=== PATIENT | female | born 1960 | race Caucasian/White ===

== ENCOUNTER 2019-06-28 05:08 | Emergency (ER) | payer OTHER ==
[~2019-06-28] VITALS: Ht 170.2 cm; Wt 44.9 kg
[2019-06-28 05:14] VITALS: Ht 170.2 cm; Wt 44.9 kg
[2019-06-28 06:01] LABS: BASOPHIL % 0.6 % (0-2); PLATELET COUNT 365 x10^3mcL (130-400); RED CELL DISTRIBUTION WIDTH 13.6 % (11.5-14.5)
[2019-06-28 06:07] LABS: CALCIUM 9.3 mg/dL (8.5-10.1); CARBON DIOXIDE 30.2 mmol/L (21-32); CHLORIDE SERUM 102 mmol/L (98-107); CREATININE SERUM 0.8 mg/dL (0.6-1.0); GFR1 > 60 mL/min; GLUCOSE SERUM 89 mg/dL (74-106); POTASSIUM SERUM 4.4 mmol/L (3.5-5.1); SODIUM SERUM 141 mmol/L (136-145)
[2019-06-28 06:12] LABS: ALBUMIN 4.2 g/dL (3.4-5.0); ALKALINE PHOSPHATASE 74 U/L (46-116); ALT/SGPT 21 U/L (14-59); AST/SGOT 22 U/L (15-37); BILIRUBIN TOTAL 0.3 mg/dL (0.20-1.00)
[2019-06-28 06:14] LABS: TOTAL PROTEIN, SERUM 8.3 g/dL (6.4-8.2)
[2019-06-28 10:30] VITALS: BP 121/71
== END 2019-06-28 10:30 | disposition home or self-care (01) ==
LOC: ED 05:08
PROVIDERS: Emergency Medicine
DX: N93.9 Abnormal uterine and vaginal bleeding, unspecified (principal); R63.0 Anorexia; J45.909 Unspecified asthma, uncomplicated; G89.29 Other chronic pain; M54.9 Dorsalgia, unspecified; M79.7 Fibromyalgia; Z88.0 Allergy status to penicillin
CPT/HCPCS: J2405; J7030

== ENCOUNTER 2019-07-15 07:29 | Day surgery (SDC) | payer OTHER ==
[~2019-07-15] VITALS: Ht 170.2 cm; Wt 40.8 kg
[2019-07-15 07:59] VITALS: BP 129/78
[2019-07-15 12:13] VITALS: BP 103/72
== END 2019-07-15 10:40 | disposition home or self-care (01) ==
LOC: GI 07:29 → OR 10:00 → GI 10:40
DX: K22.5 Diverticulum of esophagus, acquired (principal); K29.50 Unspecified chronic gastritis without bleeding; E46 Unspecified protein-calorie malnutrition; K22.70 Barrett's esophagus without dysplasia; J45.909 Unspecified asthma, uncomplicated; E03.9 Hypothyroidism, unspecified; F41.9 Anxiety disorder, unspecified; F32.9 Major depressive disorder, single episode, unspecified; Z88.8 Allergy status to other drugs, medicaments and biological substances; Z88.0 Allergy status to penicillin; Z91.041 Radiographic dye allergy status; Z79.899 Other long term (current) drug therapy; Z87.891 Personal history of nicotine dependence; Z98.890 Other specified postprocedural states; Z79.82 Long term (current) use of aspirin
CPT/HCPCS: 43235; J1200; J1610; J2250; J2310; J3010; J3490

== ENCOUNTER 2019-08-05 19:38 | Inpatient (IN) | payer OTHER, MEDICAID ==
[~2019-08-05] VITALS: Ht 170.2 cm; Wt 38.0 kg
[2019-08-05 19:48] VITALS: Ht 170.2 cm; Wt 38.0 kg
[2019-08-05 20:06] LABS: BASOPHIL % 0.1 % (0-2); PLATELET COUNT 346 x10^3mcL (130-400)
[2019-08-05 20:26] LABS: ALKALINE PHOSPHATASE 64 U/L (46-116); ALT/SGPT 23 U/L (14-59); AST/SGOT 26 U/L (15-37); BILIRUBIN TOTAL 0.6 mg/dL (0.20-1.00); CALCIUM 9.6 mg/dL (8.5-10.1); CARBON DIOXIDE 32.5 mmol/L (21-32); CHLORIDE SERUM 90 mmol/L (98-107); CREATININE SERUM 0.6 mg/dL (0.6-1.0); GFR1 > 60 mL/min; GLUCOSE SERUM 102 mg/dL (74-106); SODIUM SERUM 132 mmol/L (136-145); TOTAL PROTEIN, SERUM 7.9 g/dL (6.4-8.2)
[2019-08-05 20:29] LABS: POTASSIUM SERUM 2.9 mmol/L (3.5-5.1)
[2019-08-05] MEDS ORDERED: CLONAZEPAM2 MG PO (21:09)
[2019-08-05] MEDS ORDERED: COMPRO25 MG RC (21:10)
[2019-08-05] MEDS ORDERED: APAP/HYDROCODON1 T13 PO (21:10)
[2019-08-05] MEDS ORDERED: D3-50001 TAB PO (21:11)
[2019-08-05] MEDS ORDERED: ONDANSETRON4 M3 PO (21:11)
[2019-08-05] MEDS ORDERED: FLONS (21:12)
[2019-08-05] MEDS ORDERED: NATURE'S BLEND F1 MG PO (21:12)
[2019-08-05] MEDS ORDERED: CARISOPRODOL350 MG PO (21:12)
[2019-08-05 21:50] LABS: CHOLESTEROL/HDL RATIO 2.6; PHOSPHOROUS 2.7 mg/dL (2.5-4.9)
[2019-08-05 21:58] LABS: T3 TOTAL 0.81 ng/mL
[2019-08-05 21:59] LABS: FREE T4 1.23 ng/dL (0.76-1.46); FREE THYROXINE INDEX 3.9 ug/dL (1.4-4.5); T4(THYROXINE) 10.2 ug/dL (4.7-13.3)
[2019-08-05 23:22] VITALS: BP 109/67
[2019-08-05 23:31] VITALS: BP 109/67
[2019-08-05 23:33] LABS: UA SPECIFIC GRAVITY <=1.005 (1.005-1.035); microscopic required? YES; urine erythrocyte 2+ (NEGATIVE)
[2019-08-05 23:49] LABS: AMPHETAMINE QUAL UR NONE DETECTED (See below)
[2019-08-06 05:00] VITALS: BP 122/84
[2019-08-06 06:50] LABS: BASOPHIL % 0.5 % (0-2); PLATELET COUNT 272 x10^3mcL (130-400); RED CELL DISTRIBUTION WIDTH 13.3 % (11.5-14.5)
[2019-08-06 08:25] LABS: CALCIUM 8.7 mg/dL (8.5-10.1); CARBON DIOXIDE 27.8 mmol/L (21-32); CHLORIDE SERUM 99 mmol/L (98-107); CREATININE SERUM 0.5 mg/dL (0.6-1.0); GFR1 > 60 mL/min; GLUCOSE SERUM 78 mg/dL (74-106); MAGNESIUM 1.8 mg/dL (1.8-2.4); PHOSPHOROUS 3.6 mg/dL (2.5-4.9); POTASSIUM SERUM 3.7 mmol/L (3.5-5.1); SODIUM SERUM 135 mmol/L (136-145)
[2019-08-06 13:00] VITALS: BP 93/53
[2019-08-06 17:41] VITALS: BP 94/47
[2019-08-06 19:12] VITALS: BP 94/47
[2019-08-06 20:08] VITALS: BP 92/58
[2019-08-07 05:48] VITALS: BP 82/42
[2019-08-07 06:41] LABS: BASOPHIL % 0.7 % (0-2); PLATELET COUNT 226 x10^3mcL (130-400); RED CELL DISTRIBUTION WIDTH 13.6 % (11.5-14.5)
[2019-08-07 07:04] VITALS: BP 84/53
[2019-08-07 09:33] VITALS: BP 127/72
[2019-08-07 11:40] LABS: CALCIUM 8.4 mg/dL (8.5-10.1); CARBON DIOXIDE 27.7 mmol/L (21-32); CHLORIDE SERUM 110 mmol/L (98-107); CREATININE SERUM 0.5 mg/dL (0.6-1.0); GFR1 > 60 mL/min; GLUCOSE SERUM 68 mg/dL (74-106); MAGNESIUM 1.8 mg/dL (1.8-2.4); PHOSPHOROUS 3.5 mg/dL (2.5-4.9); POTASSIUM SERUM 3.8 mmol/L (3.5-5.1); SODIUM SERUM 143 mmol/L (136-145)
[2019-08-07 12:07] VITALS: BP 89/54; BP 90/50
[2019-08-07 15:38] VITALS: BP 100/59
[2019-08-07 19:32] VITALS: BP 90/52
[2019-08-08 04:32] VITALS: BP 102/71
[2019-08-08 07:07] VITALS: BP 114/62
[2019-08-08 07:08] LABS: CALCIUM 8.4 mg/dL (8.5-10.1); CARBON DIOXIDE 27.1 mmol/L (21-32); CHLORIDE SERUM 105 mmol/L (98-107); CREATININE SERUM 0.6 mg/dL (0.6-1.0); GFR1 > 60 mL/min; GLUCOSE SERUM 93 mg/dL (74-106); MAGNESIUM 1.7 mg/dL (1.8-2.4); POTASSIUM SERUM 3.4 mmol/L (3.5-5.1); SODIUM SERUM 138 mmol/L (136-145)
[2019-08-08 10:11] LABS: BASOPHIL % 0.7 % (0-2); PLATELET COUNT 244 x10^3mcL (130-400); RED CELL DISTRIBUTION WIDTH 13.7 % (11.5-14.5)
[2019-08-08 11:30] VITALS: BP 105/53
[2019-08-08 16:28] VITALS: BP 96/55
[2019-08-08 20:19] VITALS: BP 97/54
[2019-08-09 05:04] VITALS: BP 93/49
[2019-08-09 06:28] LABS: CALCIUM 8.4 mg/dL (8.5-10.1); CARBON DIOXIDE 29.8 mmol/L (21-32); CHLORIDE SERUM 111 mmol/L (98-107); CREATININE SERUM 0.5 mg/dL (0.6-1.0); GFR1 > 60 mL/min; GLUCOSE SERUM 75 mg/dL (74-106); MAGNESIUM 1.7 mg/dL (1.8-2.4); PHOSPHOROUS 4.5 mg/dL (2.5-4.9); POTASSIUM SERUM 4.1 mmol/L (3.5-5.1); SODIUM SERUM 147 mmol/L (136-145)
[2019-08-09 06:46] LABS: PLATELET COUNT 242 x10^3mcL (130-400)
[2019-08-09 08:54] VITALS: BP 82/42
[2019-08-09 12:15] VITALS: BP 89/53
== END 2019-08-09 15:56 | disposition home health service (06) | DRG 744 ==
LOC: ED 19:38 → DU 21:01
PROVIDERS: Obstetrics & Gynecology; Student in an Organized Health Care Education/Training Program; ADMIT Family Medicine
PROC: 0UBC7ZX Excision of Cervix, Via Natural or Artificial Opening, Diagnostic (ICD-10-PCS; principal; 2019-08-07 07:30)
DX: C53.9 Malignant neoplasm of cervix uteri, unspecified (principal); E43 Unspecified severe protein-calorie malnutrition; E87.1 Hypo-osmolality and hyponatremia; R64 Cachexia; Z68.1 Body mass index [BMI] 19.9 or less, adult; R45.851 Suicidal ideations; R62.7 Adult failure to thrive; R13.10 Dysphagia, unspecified; K22.9 Disease of esophagus, unspecified; N93.8 Other specified abnormal uterine and vaginal bleeding; M79.7 Fibromyalgia; E87.6 Hypokalemia; E83.51 Hypocalcemia; E78.5 Hyperlipidemia, unspecified; F41.1 Generalized anxiety disorder; F32.9 Major depressive disorder, single episode, unspecified; J45.909 Unspecified asthma, uncomplicated; F12.90 Cannabis use, unspecified, uncomplicated
CPT/HCPCS: 83880; 84439; 92526-GN; 92610-GN; 94150; 97110-GP; 97116-GP; 97530-GP; G0378; J0696; J1170; J1885; J2001; J2060; J2250; J2405; J2704; J3411; J3480; J3490; J7030; J7120; Q0092